=== PATIENT | male | born 1995 | race Caucasian/White ===

== ENCOUNTER → 2018-01-29 15:02 | Outpatient (CLI) | payer BC, SELFPAY ==
--- NOTE | 2018-01-29 15:08 | ECHOD_ITS ---
Reason For Study: PRECORDIAL PAIN Procedure This was a 2D Doppler, Color Flow transthoracic echocardiogram. The exam was of adequate technical quality. Exam performed in department. Left Ventricle Normal LV size. Left ventricular systolic function is normal. The estimated ejection fraction is 60 %. Normal diastology for age. No regional wall motion abnormalities noted. Right Ventricle Normal RV size. Normal systolic function. Atria Normal left atrium. Normal right atrium. No doppler evidence for ASD. Mitral Valve There is no mitral annular calcification. Normal mitral valve. Mild (1+) mitral valve insufficiency. Tricuspid Valve Normal tricuspid valve. Mild tricuspid valve insufficiency. Right ventricular systolic pressure estimated to be 22 mmHg. Aortic Valve Trisinus/trileaflet aortic valve. Normal aortic valve. Pulmonic Valve The pulmonic valve is not well visualized. Great Vessels Normal sized aortic root. Pericardium/Pleural No pericardial effusion. MMode/2D Measurements & Calculations LVIDd: 4.1 cm IVSd: 0.97 cm Ao root diam: 2.6 cm LVIDs: 2.8 cm LVPWd: 0.99 cm LA dimension: 3.7 cm RVDd: 3.8 cm FS: 31.7 % LAV(MOD-sp4): 48.4 ml LA A4 area: 18.2 cm2 RA A4 area: 14.3 cm2 Time Measurements MV dec time: 0.18 sec Doppler Measurements & Calculations MV E max aleksander: 75.1 cm/sec Lat Peak E' Aleksander: 21.0 cm/sec Med Peak E' Aleksander: 17.0 cm/sec MV A max aleksander: 42.4 cm/sec E/E' lat: 3.6 E/E' med: 4.4 MV E/A: 1.8 Ao V2 max: 97.3 cm/sec LV V1 max: 93.4 cm/sec TR max aleksander: 214.9 cm/sec Ao max P.8 mmHg LV V1 max P.5 mmHg TR max P.5 mmHg Interpretation Summary Left ventricular systolic function is normal. The estimated ejection fraction is 60 %. Mild (1+) mitral valve insufficiency. Mild tricuspid valve insufficiency. Right ventricular systolic pressure estimated to be 22 mmHg. Normal diastology for age. Ordering Physician: SEBASTIAN TAYLOR Referring Physician: SEBASTIAN TAYLOR Performed By: India Mancilla, RDCS, RVT
== END ==
PROVIDERS: Family Provider Family Medicine; PCP Family Medicine; Visit Provider Family Medicine
DX: R07.2 Precordial pain (principal)
CPT/HCPCS: 93306